=== PATIENT | female | born 1995 | race Caucasian/White ===

== ENCOUNTER 2021-08-03 08:49 | Emergency (ER) | payer BC ==
[~2021-08-03] VITALS: Ht 157.5 cm; Wt 48.5 kg
[2021-08-03 09:31] LABS: ABSOLUTE NEUTROPHILS 3.8 thou/uL (1.4-8.2); BASOPHILS 0.8 % (0.0-2.0); EOSINOPHILS 0.5 % (0.0-3.0); HEMATOCRIT 43.3 % (37.0-47.0); HEMOGLOBIN 14.3 gm/dL (12.0-15.0); LYMPHOCYTES 41.5 % (24.0-44.0); MCH 30.4 pg (26.0-34.0); MCHC 33.1 g/dL (28.0-37.0); MONOCYTES 7.8 % (1.0-8.0); PLATELET COUNT 272 thou/uL (150-400); POLYS 49.4 % (36.0-66.0); RBC 4.71 mil/uL (4.20-5.00); WBC 7.7 thou/uL (4.0-11.0)
[2021-08-03 09:32] LABS: URINE BILIRUBIN NEGATIVE (Negative); URINE BLOOD 1+ (Negative); URINE CLARITY CLEAR; URINE COLOR YELLOW; URINE GLUCOSE-RANDOM* NEGATIVE (Negative); URINE KETONES TRACE (Negative); URINE LEUKOCYTES-REFLEX NEGATIVE (Negative); URINE NITRITE-REFLEX NEGATIVE (Negative); URINE PROTEIN (DIPSTICK) 1+ (Negative); URINE SPECIFIC GRAVITY >= 1.030 (1.005-1.035); URINE UROBILINOGEN 0.2 E.U./dl (0.2-1.0)
[2021-08-03 09:35] LABS: ANION GAP 14 mmol/L (7-16); BUN 8 mg/dL (7-18); CALCIUM 8.7 mg/dL (8.5-10.1); CHLORIDE 104 mmol/L (98-107); CO2 22 mmol/L (21-32); CREATININE 0.9 mg/dL (0.6-1.0); GLUCOSE 104 mg/dL (74-106); POTASSIUM 3.4 mmol/L (3.5-5.1); SODIUM 140 mmol/L (136-145)
[2021-08-03 09:41] LABS: ALBUMIN 4.1 g/dL (3.4-5.0); SALICYLATE < 2.8 mg/dL (2.8-20.0); SGOT 25 U/L (15-37); SGPT 34 U/L (14-59); TOTAL BILIRUBIN 0.2 mg/dL (0.2-1.0); TOTAL PROTEIN 7.8 g/dL (6.4-8.2)
[2021-08-03 09:42] LABS: AMP/METHAMP POSITIVE (Negative); BARBITURATES Negative (Negative); BENZODIAZEPINES Negative (Negative); COCAINE Negative (Negative); METHADONE Negative (Negative); OPIATES Negative (Negative); PCP Negative (Negative)
[2021-08-03 09:48] LABS: BACTERIA-REFLEX 1-9 Few /HPF (None Seen); CASTS None Seen /LPF (None Seen); CRYSTALS None Seen /LPF (None Seen); SQUAMOUS 0-3 Few /LPF (0-3); URINE RBC 3-10 Few /HPF (NONE SEEN); URINE WBC-REFLEX 0-5 Rare /HPF (0-5)
[2021-08-03] MEDS ORDERED: VYVANSE70 MG PO (09:55)
[2021-08-03 12:12] VITALS: BP 136/96
--- NOTE | 2021-08-05 07:58 | EKG ---
[address] [place] [address] ELECTROCARDIOGRAM REPORT Name: EBEN SHAHID Room [facility]: [id number] Admission: 08/03/21 Attend Phys: Discharge: 08/03/21 Date of : [birth year] Report #: [id number] [facility] ED Test Date: 2021-08-03 Test Time: 09:21:00 Pat Name: EBEN SHAHID Department: Room: Gender: F Skein Straightener: CLAUDE : 1995 Requested By: Donovan Cid Order Number: [id number] MD: Singh Hudson Measurements Intervals [place] Rate: 85 P: 65 MA: 109 QRS: 51 QRSD: 84 T: 27 QT: 324 QTc: 386 Interpretive Statements Sinus rhythm Short MA interval Baseline wander in lead(s) V5,V6 No previous ECG available for comparison Electronically Signed On 08-05-2021 7:57:58 CDT by Singh Hudson [email or web address] <ELECTRONICALLY SIGNED> By: Singh Hudson MD, MERGED WITH [facility] 08/05/21 0757 0 0 Singh Hudson MD, FAC /EPI
== END 2021-08-03 12:24 | disposition home or self-care (01) ==
LOC: ER 08:49
PROVIDERS: Emergency Medicine
DX: F32.9 Major depressive disorder, single episode, unspecified (principal); Z20.822 Contact with and (suspected) exposure to COVID-19; Z79.899 Other long term (current) drug therapy; Z88.2 Allergy status to sulfonamides